=== PATIENT | female | born 1985 | race Caucasian/White ===

== ENCOUNTER 2016-10-28 05:20 | Inpatient (IN) | payer OTHER ==
[~2016-10-28] VITALS: Ht 170.2 cm; Wt 91.2 kg
[2016-10-28] MEDS ORDERED: OXYTOCIN 30U/ 0.9% NaCL 500ML 500 ML IV ONE (05:23)
[2016-10-28] MEDS: D5%-LACTATED RINGERS 1,000 ML IV SCH ×3 (05:23→21:23)
[2016-10-28] MEDS ORDERED: FENTANYL PF 100 MCG/2ML IV PRN (05:30)
[2016-10-28] MEDS ORDERED: ONDANSETRON 2MG/ML, 2ML IVPush PRN (05:30)
[2016-10-28] MEDS ORDERED: FENTANYL PF 100 MCG/2ML IVPush PRN (05:30)
[2016-10-28] MEDS ORDERED: TERBUTALINE 1 MG/ML, 1ML IVPush PRN (05:30)
[2016-10-28] MEDS ORDERED: CALCIUM CARBONATE 500 MG TAB.CHEW PO PRN (05:30)
[2016-10-28] MEDS ORDERED: MISOPROSTOL 25 MCG TABLET VG PRN (05:30)
[2016-10-28 05:39] VITALS: BP 130/75
[2016-10-28] MEDS: LACTATED RINGERS 1,000 ML IV SCH ×3 (05:55→20:28)
[2016-10-28] MEDS ORDERED: PLEASE ENTER ALLERGIES MC SCH ×2 (06:30)
[2016-10-28] MEDS ORDERED: MISOPROSTOL 25 MCG TABLET ONE ×2 (06:36→10:46)
[2016-10-28] MEDS ORDERED: PREN1TAB60 PO (07:28)
[2016-10-28] MEDS ORDERED: FENTANYL PF 100 MCG/2ML ONE (19:01)
[2016-10-28 19:19] VITALS: BP 135/81
[2016-10-28] MEDS ORDERED: FENTANYL/BUPIV./NS/PF 250 ML EPIDCONT ONE (19:52)
[2016-10-28] MEDS ORDERED: EPHEDRINE 50 MG/ML, 1ML IVPush PRN (20:30)
[2016-10-28] MEDS ORDERED: LACTATED RINGERS 1,000 ML IVBOLUS PRN (20:30)
[2016-10-28] MEDS ORDERED: LACTATED RINGERS 1,000 ML IV SCH (20:30)
[2016-10-28] MEDS ORDERED: FENTANYL/BUPIV./NS/PF 250 ML EPIDCONT SCH (20:30)
[2016-10-28] MEDS ORDERED: NALOXONE 0.4 MG/ML, 1ML IVPush PRN (20:30)
[2016-10-29] MEDS ORDERED: OXYTOCIN 30U/ 0.9% NaCL 500ML 500 ML ONE (00:17)
[2016-10-29] MEDS ORDERED: DIPHENHYDRAMINE 25 MG CAPSULE ONE (00:25)
[2016-10-29] MEDS ORDERED: DIPHENHYDRAMINE 25 MG CAPSULE PO ONE (00:30)
[2016-10-29] MEDS: OXYTOCIN 30U/ 0.9% NaCL 500ML 500 ML IV SCH ×2 (02:17→12:17)
[2016-10-29] MEDS ORDERED: MISOPROSTOL 200 MCG TABLET PR PRN (02:30)
[2016-10-29] MEDS ORDERED: CALCIUM CARBONATE 500 MG TAB.CHEW PO PRN (02:30)
[2016-10-29] MEDS ORDERED: HYDROcodone/APAP 5/325 TABLET PO PRN (02:30)
[2016-10-29] MEDS ORDERED: DOCUSATE 100 MG CAPSULE PO PRN (02:30)
[2016-10-29] MEDS ORDERED: ONDANSETRON 2MG/ML, 2ML IV PRN (02:30)
[2016-10-29] MEDS ORDERED: HYDROcodone/APAP 5/325 TABLET ONE (03:02)
[2016-10-29] MEDS: HYDROcodone/APAP 5/325 TABLET PO PRN ×4 (03:06→20:10)
[2016-10-29 04:00] VITALS: BP 107/59
[2016-10-29 07:20] VITALS: BP 136/65
[2016-10-29] MEDS: IBUPROFEN 600 MG TABLET PO PRN ×2 (07:49→15:19)
[2016-10-29] MEDS: PRENATAL VIT/IRON/FA 1 EACH TABLET PO SCH ×2 (09:00→22:04)
[2016-10-29 11:45] VITALS: BP 117/64
[2016-10-29 16:10] VITALS: BP 105/65
[2016-10-29 21:00] VITALS: BP 120/72
[2016-10-30 00:30] VITALS: BP 108/59
[2016-10-30] MEDS: HYDROcodone/APAP 5/325 TABLET PO PRN ×2 (00:47→08:50)
[2016-10-30 07:52] VITALS: BP 104/64
[2016-10-30] MEDS ORDERED: IBUP800T PO (08:11)
[2016-10-30] MEDS ORDERED: HYDR-3240 PO (08:11)
[2016-10-30] MEDS ORDERED: DOCU-30 PO (08:12)
[2016-10-30] MEDS: PRENATAL VIT/IRON/FA 1 EACH TABLET PO SCH (08:50)
[2016-10-30] MEDS: IBUPROFEN 600 MG TABLET PO PRN (08:50)
== END 2016-10-30 11:15 | disposition home or self-care (01) | DRG 775 ==
LOC: LDIP 05:20 → 2NW 10-29 02:51 → LDIP 10-29 03:00 → 2NW 10-29 03:49
PROVIDERS: ADMIT Obstetrics & Gynecology; ATTEND Obstetrics & Gynecology
PROC: 10E0XZZ Delivery of Products of Conception, External Approach (ICD-10-PCS; principal; 2016-10-29)
PROC: 3E0P7GC Introduction of Other Therapeutic Substance into Female Reproductive, Via Natural or Artificial Opening (ICD-10-PCS; 2016-10-29)
PROC: 0HQ9XZZ Repair Perineum Skin, External Approach (ICD-10-PCS; 2016-10-29)
PROC: 3E0R3CZ (ICD-10-PCS; 2016-10-29)
PROC: 00HU33Z Insertion of Infusion Device into Spinal Canal, Percutaneous Approach (ICD-10-PCS; 2016-10-29)
PROC: 10907ZC Drainage of Amniotic Fluid, Therapeutic from Products of Conception, Via Natural or Artificial Opening (ICD-10-PCS; 2016-10-29)
DX: O36.63X0 Maternal care for excessive fetal growth, third trimester, not applicable or unspecified (principal); O99.02 Anemia complicating childbirth; D64.9 Anemia, unspecified; O70.0 First degree perineal laceration during delivery; Z3A.39 39 weeks gestation of pregnancy; Z37.0 Single live birth
CPT/HCPCS: 36415; 85025; 86850; 86900; J3010; J2590; J7120